=== PATIENT | male | born 1995 | race Two or more races ===

== ENCOUNTER 2019-10-01 12:06 | Emergency (ER) | payer SELFPAY ==
[~2019-10-01] VITALS: Ht 167.6 cm; Wt 70.3 kg
--- NOTE | 2019-10-01 12:20 | NUR ---
ED Nurse Note: Pt ambulated to ED d/t elevated body temp, headache and bodyache. Pt is AOx4, VSS on RA; noted temp at 102.7 at triage. Placed on bed. Pt denies any recent travels nor exposure to large group of crowd; denies coughing nor sore throat. Placed on a private room; observed isolation precautions. Safety assured.
--- NOTE | 2019-10-01 12:25 | NUR ---
ED Nurse Note: ERPA at bedside.
--- NOTE | 2019-10-01 12:35 | NUR ---
ED Nurse Note: Obtained flu swabs; sent to labs.
[2019-10-01 12:38] VITALS: BP 123/75
[2019-10-01] MEDS ORDERED: TYLENOL EXTRA500 MG ORAL (13:18)
[2019-10-01] MEDS ORDERED: IBUPROFEN600 MG ORAL (13:18)
--- NOTE | 2019-10-01 13:18 | Emergency Room Report ---
History of Present Illness General Chief Complaint: Flu Like Symptoms Source: Patient Present Illness HPI 24-year-old male with no significant past medical history, non-smoker, denies any recent travel here complaining of 8 days of fever fluctuating between 102 103 F. Denies all other symptoms such as sore throat, cough and congestion, abdominal pain, nausea vomiting. Reports that a week ago he started having 2 days of generalized body ache however that has been subsided. Patient has been self correcting himself. Has not been going to work. 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 Appears to have fever of 102 F today. Needs, tobacco smoke, other associate symptoms. Patient is in no apparent distress at this time. COVID-19 risk:Travel to affect: No Has patient experienced brennan: No Allergies: Coded Allergies: No Known Allergies (Unverified , 10/01/19) Patient History Past Medical History: see triage record Past Surgical History: none Pertinent Family History: none Immunizations: UTD Reviewed Nursing Documentation: PMH: Agreed; PSxH: Agreed Nursing Documentation-PMH Past Medical History: No Stated History Review of Systems All Other Systems: negative except mentioned in HPI Physical Exam Vital Signs Date Time Temp Pulse Resp B/P (MAP) Pulse Ox O2 Delivery O2 Flow Rate FiO2 10/01/19 12:08 102.7 119 22 123/75 (91) 95 Room Air Sp02 EP Interpretation: reviewed, normal General Appearance: no apparent distress, alert, GCS 15, non-toxic Head: normocephalic, atraumatic Eyes: bilateral eye normal inspection, bilateral eye PERRL ENT: hearing grossly normal, normal pharynx, no angioedema, normal voice Neck: full range of motion, supple/symm/no masses Respiratory: chest non-tender, lungs clear, normal breath sounds, speaking full sentences Cardiovascular #1: regular rate, rhythm, no edema, no murmur Gastrointestinal: normal bowel sounds, non tender, soft, non-distended, no guarding, no rebound Rectal: deferred Genitourinary: no CVA tenderness Musculoskeletal: back normal Neurologic: alert, motor strength/tone normal, oriented x3, sensory intact, responsive, speech normal Psychiatric: normal inspection Skin: no rash Lymphatic: no adenopathy Medical Decision Making PA Attestation All my diagnosis and treatment plans were reviewed ad discussed with my supervising physician Dr. Rehman Diagnostic Impression: Primary Impression: Chronic fever ER Course 24-year-old male with no significant past medical history, non-smoker, denies any recent travel here complaining of 8 days of fever fluctuating between 102 103 F. Denies all other symptoms such as sore throat, cough and congestion, abdominal pain, nausea vomiting. Reports that a week ago he started having 2 days of generalized body ache however that has been subsided. Patient has been self correcting himself. Has not been going to work. 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 Appears to have fever of 102 F today. Needs, tobacco smoke, other associate symptoms. Patient is in no apparent distress at this time. Ddx considered but are not limited to: Brennan virus, strep pharyngitis, URI, tonsillitis, peritonsillar abscess, influneza Vital signs: are WNL, pt. is febrile H&PE are most consistent with: chronic fever ORDERS: rapid flu, CXR , motrin, tylenol ED INTERVENTIONS: None required at this time. DISCHARGE: At this time pt. is stable for d/c to home. Will provide printed patient care instructions, and any necessary prescriptions. Care plan and follow up instructions have been discussed with the patient prior to discharge.called [facility], they advised to send pt home with further testing as he does not meet Covid 19 testing criteria. I advised pt to go to [facility] or [facility] for testing per recommendation of my supervising physician. Take medication as directed, follow-up with your primary doctor, you need to stay home for self quarantine due to Covid 19 precautions for 14 days Chest X-Ray Diagnostic Results Chest X-Ray Diagnostic Results : Chest X-Ray Ordered: Yes # of Views/Limited/Complete: 1 View Indication: Other EP Interpretation: Yes PA Xray: Interpretation reviewed, by supervising MD, and agrees with findings. Interpretation: no consolidation, no effusion, no pneumothorax Impression: No acute disease Electronically Signed by: Shakira Ro PA-C Last Vital Signs Date Time Temp Pulse Resp B/P (MAP) Pulse Ox O2 Delivery O2 Flow Rate FiO2 10/01/19 12:38 102.7 22 123/75 95 Room Air 10/01/19 12:38 119 Disposition: HOME, SELF-CARE Condition: Stable Scripts Acetaminophen* (TYLENOL EXTRA STRENGTH*) 500 Mg Tablet 500 MG ORAL Q8H PRN for Prn Headache/Temp > 101, #30 TAB 0 Refills Prov: Shakira Jara 10/01/19 Ibuprofen* (MOTRIN*) 600 Mg Tablet 600 MG ORAL THREE TIMES A DAY, #30 TAB 0 Refills Prov: Shakira Jara 10/01/19 Patient Instructions: Fever, Adult, [id number] Additional Instructions: Follow-up with primary care provider, you need to go to [facility] for [facility] for COVID 19 testing. Self quarantine for 14 days highly recommended. Shakira Jara Oct 01, 2019 13:18
--- NOTE | 2019-10-01 13:42 | Diagnostic Imaging Report ---
Indication: Cough Technique: One view of the chest Comparison: none Findings: Lungs and pleural spaces are clear. Heart size is normal. Impression: No acute process
[2019-10-01 14:52] VITALS: BP 123/75
--- NOTE | 2019-10-01 14:52 | NUR ---
ER DISCHARGE NOTE: Patient is cleared to be discharged per ERPA, pt is aox4, on room air, with stable vital signs. pt was given dc and prescription instructions, pt was able to verbalize understanding, pt id band removed. pt is able to ambulate with steady gait. pt took all belongings.
== END 2019-10-01 14:52 | disposition home or self-care (01) ==
LOC: EMR 12:49
DX: R50.9 Fever, unspecified (principal)
CPT/HCPCS: 71045; 86710; 99283